=== PATIENT | female | born 1955 | race African-American/Black ===

== ENCOUNTER 2017-04-19 10:27 | Emergency (ER) | payer OTHER ==
[~2017-04-19] VITALS: Ht 162.6 cm; Wt 121.0 kg
[~2017-04-19 10:27] MED LIST: AMLO10TA4 PO; ASPI-1158 PO; ATOR-2 PO; BENA10TA3 PO; CALC-1035 PO; CALC0.5C10 PO; CLOP75TA16 PO; DIGO125T82 PO; GLYB5TAB7 PO; INSU100C11 SQ; METO25TA6 PO; NITR50CA4 PO; PROVACHOL PO; SERT50TA PO; TRIA15CR10 TP; lantus SUBCUT
[2017-04-19] MEDS ORDERED: DEXAMETHASONE 10 MG/ML VIAL IM ONE (11:45)
[2017-04-19] MEDS ORDERED: LORAZEPAM 1MG TABLET PO ONE (11:45)
[2017-04-19] MEDS ORDERED: IBUPROFEN 800MG TABLET PO ONE (11:45)
[2017-04-19] MEDS ORDERED: VERA240C2 PO (11:46)
[2017-04-19 12:07] LABS: CLARITY URINE TURBID (CLEAR); COLOR URINE DARK YELLOW (YELLOW); GLUCOSE URINE TRACE (NEGATIVE); KETONES URINE TRACE (NEGATIVE); LEUKOCYTE ESTERASE URINE 2+ (NEGATIVE); NITRITE URINE NEGATIVE (NEGATIVE); OCCULT BLOOD URINE NEGATIVE (NEGATIVE); PH URINE 5.5 (4.5-8.0); PROTEIN URINE TRACE (NEGATIVE); SPECIFIC GRAVITY URINE 1.029 (1.005-1.030)
[2017-04-19 13:24] VITALS: BP 125/53
== END 2017-04-19 13:27 | disposition home or self-care (01) ==
LOC: ER 10:27
DX: M54.40 Lumbago with sciatica, unspecified side (principal); R51 Headache
CPT/HCPCS: 81001; 96372; 99283; J1100

== ENCOUNTER 2021-03-21 14:56 | Emergency (ER) | payer MEDICAID ==
[~2021-03-21] VITALS: Ht 165.1 cm; Wt 79.0 kg
[~2021-03-21 14:56] MED LIST changes: +ALPR-340 PO; -ASPI-1158 PO; +ASPI-1406 PO; +ASPI-1497 PO; -BENA10TA3 PO; +BENA10TA74 MT; +BENA10TA74 PO; +CHOL400T; -CLOP75TA16 PO; +CLOP75TA4 PO; -DIGO125T82 PO; +HYDR-4133 PO; +HYDR-4135 PO; +HYDR25TA PO; +METO-385 PO; -NITR50CA4 PO; +PENT400T16 PO; +VERA240C2 PO; -lantus SUBCUT
[2021-03-21] MEDS ORDERED: NITROGLYCERIN 0.4MG TABLET SL SL PRN (15:30)
[2021-03-21] MEDS ORDERED: ASPIRIN 81MG TABLET PO ONE (15:30)
[2021-03-21 18:18] LABS: BASOPHILS % 0.8 % (0.0-2.0); HEMATOCRIT. 32.6 % (36.0-48.0); HEMOGLOBIN. 10.8 g/dL (12.0-16.0); LYMPHOCYTES % 21.4 % (20.0-50.0); MEAN CORPUSCULAR HEMOGLOBIN 28.3 pg (28.0-32.0); MEAN CORPUSCULAR VOLUME 85.5 fL (81.0-99.0); MEAN PLATELET VOLUME 8.4 fl (7.4-10.4); MONOCYTES % 12.3 % (2.0-8.0); NEUTROPHILS % 64.5 % (40.0-76.0); PLATELET 716 x1000/uL (130-400); RED BLOOD CELL COUNT 3.82 mill/uL (4.2-5.4); RED CELL DISTRIBUTION WIDTH 16.5 % (11.6-14.6)
[2021-03-21 18:36] LABS: CHLORIDE 99 mEq/L (98-107)
[2021-03-21] MEDS ORDERED: FUROSEMIDE 20MG/2ML VIAL IVP ONE (19:15)
[2021-03-21 21:45] VITALS: BP 126/70
== END 2021-03-21 22:11 | disposition left against medical advice (07) ==
LOC: MERGE 14:56 → ER 14:56
DX: I11.0 Hypertensive heart disease with heart failure (principal); I50.9 Heart failure, unspecified; E11.9 Type 2 diabetes mellitus without complications; E78.00 Pure hypercholesterolemia, unspecified; Z86.73 Personal history of transient ischemic attack (TIA), and cerebral infarction without residual deficits; Z90.49 Acquired absence of other specified parts of digestive tract
CPT/HCPCS: 36415; 71045; 80053; 83880; 84484; 85025; 93005; 99285; Z7610

== ENCOUNTER 2021-03-24 16:10 | Emergency (ER) | payer OTHER, MEDICAID ==
[~2021-03-24] VITALS: Ht 167.6 cm; Wt 85.0 kg
[2021-03-25 00:03] LABS: BASOPHILS % 0.5 % (0.0-2.0); EOSINOPHILS % 0.4 % (0.0-5.0); HEMATOCRIT. 31.9 % (36.0-48.0); HEMOGLOBIN. 10.5 g/dL (12.0-16.0); LYMPHOCYTES % 18.7 % (20.0-50.0); MEAN CORPUSCULAR HEMOGLOBIN 28.3 pg (28.0-32.0); MEAN PLATELET VOLUME 8.3 fl (7.4-10.4); MONOCYTES % 9.8 % (2.0-8.0); NEUTROPHILS % 70.6 % (40.0-76.0); PLATELET 736 x1000/uL (130-400); RED BLOOD CELL COUNT 3.71 mill/uL (4.2-5.4); RED CELL DISTRIBUTION WIDTH 16.5 % (11.6-14.6)
[2021-03-25 00:05] LABS: CHLORIDE 95 mEq/L (98-107)
[2021-03-25 00:08] LABS: INR 1.2; PROTHROMBIN TIME 12.3 sec (9.6-11.0)
[2021-03-25] MEDS ORDERED: FUROSEMIDE 40MG/4ML VIAL IVP NR (00:30)
[2021-03-25] MEDS ORDERED: POTASSIUM CHLORIDE INJ 40 MEQ in DEXT 5% WATER 250 ML IV NR (01:00)
[2021-03-25 02:30] VITALS: BP 148/64
== END 2021-03-25 03:27 | disposition short-term general hospital (02) ==
LOC: ER 16:54 → CANBEDREQ 03-25 01:06 → ER 03-25 03:27
DX: R06.02 Shortness of breath (principal); I31.3 Pericardial effusion (noninflammatory); J90 Pleural effusion, not elsewhere classified; I11.9 Hypertensive heart disease without heart failure; E11.9 Type 2 diabetes mellitus without complications; Z79.4 Long term (current) use of insulin; Z85.3 Personal history of malignant neoplasm of breast; Z79.82 Long term (current) use of aspirin; Z90.10 Acquired absence of unspecified breast and nipple
CPT/HCPCS: 36415; 71045; 80053; 83690; 83880; 84484; 85025; 85610; 93005; 96365; 96375; 99285; J1940; J3480; J7060